=== PATIENT | female | born 1945 | race Two or more races ===

== ENCOUNTER 2018-10-31 07:45 | Inpatient (IN) | payer OTHER ==
[~2018-10-31] VITALS: Ht 152.4 cm; Wt 63.5 kg
[2018-10-31] MEDS ORDERED: INDAPAMIDE2.5 MG (10:00)
[2018-10-31] MEDS ORDERED: SIMVASTATIN10 MG (10:00)
[2018-10-31] MEDS ORDERED: SYNTHROID88 MCG (10:00)
[2018-10-31] MEDS ORDERED: RESTORIL15 M1 (10:00)
[2018-11-07] MEDS ORDERED: NEURONTIN800 MG PO (11:10)
[2018-11-07] MEDS ORDERED: COLACE100 MG PO (11:10)
[2018-11-07] MEDS ORDERED: RESTORIL15 MG PO (11:11)
[2018-11-07] MEDS ORDERED: PERCOCET 5-3251 EACH PO (11:11)
[2018-11-07] MEDS ORDERED: AMOX-CLAV 875-1 EACH PO (11:11)
== END 2018-11-08 20:15 | DRG 455 ==
LOC: SURH 11-07 06:00 → O/R 11-07 06:00 → SURH 11-07 07:45
PROVIDERS: ADMIT Orthopaedic Surgery Orthopaedic Surgery of the Spine
PROC: 0SG0071 Fusion of Lumbar Vertebral Joint with Autologous Tissue Substitute, Posterior Approach, Posterior Column, Open Approach (ICD-10-PCS; 2018-11-07)
PROC: 0SG00AJ Fusion of Lumbar Vertebral Joint with Interbody Fusion Device, Posterior Approach, Anterior Column, Open Approach (ICD-10-PCS; 2018-11-07)
PROC: 0ST20ZZ Resection of Lumbar Vertebral Disc, Open Approach (ICD-10-PCS; 2018-11-07)
PROC: 07DS3ZZ Extraction of Vertebral Bone Marrow, Percutaneous Approach (ICD-10-PCS; 2018-11-07)
PROC: 4A12X4Z Monitoring of Cardiac Electrical Activity, External Approach (ICD-10-PCS; 2018-11-07)
PROC: 0SG00A0 Fusion of Lumbar Vertebral Joint with Interbody Fusion Device, Anterior Approach, Anterior Column, Open Approach (ICD-10-PCS; principal; 2018-11-07 09:45)
DX: M43.16 Spondylolisthesis, lumbar region (principal); M48.062 Spinal stenosis, lumbar region with neurogenic claudication; M51.16 Intervertebral disc disorders with radiculopathy, lumbar region; I10 Essential (primary) hypertension; E03.8 Other specified hypothyroidism

== ENCOUNTER 2023-11-21 07:20 | Outpatient (CLI) | payer OTHER ==
[~2023-11-21 07:20] MED LIST: AMOX-CLAV 875-1 EACH PO; COLACE100 MG PO; INDAPAMIDE2.5 MG; NEURONTIN800 MG PO; PERCOCET 5-3251 EACH PO; RESTORIL15 M1; RESTORIL15 MG PO; SIMVASTATIN10 MG; SYNTHROID88 MCG
== END 2023-11-21 07:25 | disposition home or self-care (01) ==
LOC: RX STUDY 07:20
PROVIDERS: ATTEND Internal Medicine Gastroenterology
DX: R13.10 Dysphagia, unspecified (principal); K21.9 Gastro-esophageal reflux disease without esophagitis